=== PATIENT | male | born 1990 | race Caucasian/White ===

== ENCOUNTER 2018-06-21 11:25 | Emergency (ER) | payer MEDICAID ==
[~2018-06-21] VITALS: Ht 172.7 cm; Wt 103.0 kg
[2018-06-21 11:30] VITALS: Ht 172.7 cm; Wt 103.0 kg
[2018-06-21 19:06] VITALS: BP 143/80
== END 2018-06-21 19:06 | disposition home or self-care (01) ==
LOC: ED 11:25
DX: S61.412A Laceration without foreign body of left hand, initial encounter (principal); W26.0XXA Contact with knife, initial encounter; Y93.89 Activity, other specified; Y92.89 Other specified places as the place of occurrence of the external cause; Y99.8 Other external cause status
CPT/HCPCS: J2001

== ENCOUNTER 2018-06-23 10:30 | Emergency (ER) | payer MEDICAID ==
[~2018-06-23] VITALS: Ht 172.7 cm; Wt 103.0 kg
[2018-06-23 11:03] VITALS: BP 116/71; Ht 172.7 cm; Wt 103.0 kg
== END 2018-06-23 11:32 | disposition home or self-care (01) ==
LOC: ED 10:30
DX: S61.412D Laceration without foreign body of left hand, subsequent encounter (principal); W26.0XXD Contact with knife, subsequent encounter